=== PATIENT | male | born 1995 | race Caucasian/White ===

== ENCOUNTER 2016-07-15 05:41 | Observation (INO) | payer BC, OTHER ==
[2016-07-15] MEDS ORDERED: LIDOCAINE 1% 2 ML INJ ONE (06:00)
[2016-07-15] MEDS ORDERED: CLINDAMYCIN 600 MG/DEXTROSE 50 ML IV ONE (06:30)
[2016-07-15] MEDS ORDERED: fentaNYL 100 MCG/2 ML INJ ONE ×4 (06:34→12:08)
[2016-07-15] MEDS ORDERED: MIDAZOLAM 2 MG/2 ML VIAL ONE (06:34)
[2016-07-15] MEDS ORDERED: PROPOFOL 200 MG/20 ML VIAL ONE (06:35)
[2016-07-15 06:49] LABS: % IMMATURE GRANULYOCYTES 0.3 % (0.0-1.1); ABSOLUTE IMMATURE GRANULOCYTES 0.02 10^3/uL (0.00-0.10); ADD DIFF? NO; ADD MORPH? NO; ADD SCAN? NO; ATYPICAL LYMPHOCYTE FLAG 30 (0-99); FRAGMENT RBC FLAG 0 (0-99); HEMOGLOBIN 17.4 g/dL (13.7-17.5); LEFT SHIFT FLG 0 (0-99); LIPEMIA HEMOLYSIS FLAG 90 (0-99); MEAN CELL HEMOGLOBIN 28.8 pg (27.9-34.1); MEAN CELL HEMOGLOBIN CONCENTR. 35.5 g/dL (32.4-36.7); MEAN CELL VOLUME 81.1 fL (81.5-99.8); MEAN PLATELET VOLUME 9.8 fL (8.7-11.7); PLATELET CLUMPS FLAG 10 (0-99); PLATELET COUNT 247 10^3/uL (150-400); RED BLOOD CELL COUNT 6.04 10^6/uL (4.40-6.38); RED CELL DISTRIBUTION WIDTH 13.1 % (11.5-15.2)
[2016-07-15] MEDS ORDERED: BUPIVACAINE/EPI 0.5% 30 ML SDV ONE (07:01)
[2016-07-15] MEDS ORDERED: MINERAL OIL 10 ML VIAL ONE (07:02)
[2016-07-15] MEDS ORDERED: POLYMYXIN B SULFATE 500,000 UNIT/10 ML SYR IRR ONE (07:03)
[2016-07-15] MEDS ORDERED: BACITRACIN 50,000 UNITS/10 ML SYR IRR ONE (07:03)
[2016-07-15] MEDS ORDERED: LIDO/EPI 2% **for epidural** 20 ML SDV ONE (07:04)
[2016-07-15 07:05] LABS: ANION GAP 15 mEq/L (8-16); CALCIUM 10.1 mg/dL (8.5-10.4); CARBON DIOXIDE 23 mEq/l (22-31); CHLORIDE 106 mEq/L (97-110); CREATININE 0.9 mg/dL (0.7-1.3); GLOMERULAR FILTRATION RATE > 60; GLUCOSE 94 mg/dL (70-100); POTASSIUM 4.2 mEq/L (3.5-5.2); SODIUM 144 mEq/L (134-144)
--- NOTE | 2016-07-15 07:27 | POSTOPPROG ---
Post Op Note Date of Operation: 07/15/16 Surgeon: Tramaine Tellez Assistant Kitchen Manager: Silvestre Tellez Anesthesiologist: Allen Farrell Anesthesia: GET(General Endotracheal) (Nasal intubation) Pre-op Diagnosis: Maxillary hypoplasia, Class III skeletal/dental deformity Post-op Diagnosis: Same Indication: Malocclusion Procedure: LeFort 1 osteotomy advacement, equilibration of #20, 21, 28, 29 Findings: NSF Inf/Abcess present in the surg proc area at time of surgery?: No EBL: 50-100 (50cc) Total fluids administered: 2400cc Complications: The occlusal splint did not fit the dentition and therefore could not be used Specimen(s): none
[2016-07-15] MEDS ORDERED: ONDANSETRON 4 MG/2 ML VIAL IVP PRN (07:30)
[2016-07-15] MEDS ORDERED: NS W/ 20 KCl/L 1,000 ML IV SCH (07:30)
[2016-07-15] MEDS ORDERED: SODIUM CL NASAL 45 ML BTL EACHNARE PRN (07:30)
[2016-07-15] MEDS ORDERED: OXYMETAZOLINE 30 ML NASAL SPRAY EACHNARE PRN (07:30)
[2016-07-15] MEDS ORDERED: HYDROCOD/APAP 7.5/325 IN 15ML UDCUP PO PRN (07:30)
[2016-07-15] MEDS ORDERED: OXYMETAZOLINE 30 ML NASAL SPRAY EACHNARE ONE (07:45)
[2016-07-15] MEDS ORDERED: FLUTICASONE NASAL 120 SPRAYS/16 GM MDI EACHNARE SCH (09:00)
[2016-07-15] MEDS ORDERED: PSEUDOEPHEDRINE LIQ 30 MG/10 ML UDSYR PO SCH (09:00)
[2016-07-15] MEDS ORDERED: HYDROmorphONE/DILAUDID 1 MG/ML SYR ONE (12:08)
[2016-07-15] MEDS ORDERED: ONDANSETRON 4 MG/2 ML VIAL ONE (12:09)
--- NOTE | 2016-07-15 12:49 | GOP ---
[f rep st] OPERATIVE REPORT DATE OF OPERATION: 07/15/2016 SURGEON: Tramaine Tellez DDS INVESTMENT DIRECTOR: Silvestre Tellez DDS ANESTHESIA: General nasotracheal anesthesia. PREOPERATIVE DIAGNOSIS: 1. Maxillary hypoplasia. 2. Skeletal and dental class 3 profile. POSTOPERATIVE DIAGNOSIS: 1. Maxillary hypoplasia. 2. Skeletal and dental class 3 profile. PROCEDURE PERFORMED: LeFort I osteotomy advancement with rigid fixation. FINDINGS: No significant findings ESTIMATED BLOOD LOSS: 50 cc. INDICATIONS: The patient is a previously healthy 20-year-old male, who was diagnosed with maxillary hypoplasia and a class 3 skeletal dental deformity requiring orthognathic surgery to correct. He was seen on Wednesday, where risks, benefits, consequences, complications and alternatives of the procedure were discussed in detail, signed, and verbal consent was obtained. Postoperative written and verbal instructions were given. Prescriptions were also given to the patient. He presented to the hospital today n.p.o. and with an escort. DESCRIPTION OF PROCEDURE: The patient was transported into the operating room and onto the OR table. Following successful nasotracheal intubation, the patient had scleral rao placed and he was prepped and draped in a normal sterile fashion. A K-wire was placed in the patient's nasal dorsum. The vertical dimension was measured at 72.0 mm at the beginning of the case. 10 cc of 2% lidocaine with 1:100,000 epinephrine and 0.5% Marcaine with 1:200, 000 epinephrine was infiltrated into the patient's maxillary vestibule. Next, a Bovie electrocautery was used to make a circum-vestibular incision and the subperiosteal dissection was performed to expose the maxilla. The nasal mucosa was dissected off the nasal floor and lateral nasal wall. The anterior portion of the septum was also dissected off the bony nasal floor. A periosteal elevator was placed along the lateral aspect of the nasal wall to protect the mucosa and the LeFort I osteotomy was performed on the right side with a reciprocating saw. The periosteal elevator was then placed onto the opposite side to protect the nasal mucosa. LeFort I osteotomy was performed in the same fashion with the reciprocating saw under irrigation. All osteotomies and bone reduction were performed under normal saline impregnated with bacitracin and polymyxin. The osteotomy was then redefined with a straight spatula osteotome, defining the posterior maxillary sinus wall cuts. The guarded lateral nasal wall osteotome was used to separate the lateral nasal boone to a depth of 1.5 cm. The bilateral guarded nasal osteotome was then used to separate the nasal septum from the bony nasal floor. Lastly, the curved pterygoid osteotomes were used to separate the pterygoid plates bilaterally from the maxilla and the patient was down fractured. No obvious tears were noted in the nasal mucosa and the maxilla was freely mobilized with Andrew elevators. Bone on the lateral nasal wall and along the septum was reduced with a rongeur and watermelon bur under irrigation. The descending palatine arteries were preserved bilaterally. Next, the patient was placed into his final occlusal splint. It was noted that the splint had warped and the patient's right posterior maxillary teeth would not seat fully into the splint. After significant adjustment of the splint, we still could not get the splint to passively seat and, therefore, it was determined that the best course of action would be to place the patient into intermaxillary fixation without splint placement. This was completed, making sure that the maxillary and mandibular midlines were coincident. Bony interferences were then reduced and passive bilateral contact at the piriform and buttress was noted. The vertical measure was measured to assure that the patient was impacted slightly. Four Synthes 0.7 mm L plates with 5 mm monocortical self-drilling screws were used to stabilize the maxilla bilaterally. The patient was then released from intermaxillary fixation. It was noted that he had a slight deviation of his midline and that there were some tooth interferences. Therefore, tooth #20, #21 , #28, #29 were equilibrated with a round cabrera bur under copious irrigation. We were still not able to obtain a passive mandibular midline relative to the maxilla and, therefore, the patient was placed back into intermaxillary fixation. The bone plates screws were removed, passive bone contact was verified, plates were readjusted and secured in place. The patient was released from intermaxillary fixation and the maxillary and mandibular midlines were noted to be coincident and passive with his occlusion. Following LeFort I osteotomy with fixation the vertical was measured at 71.0 mm. I elected not to impact the patient the additional 2mm because he only showed 2mm of incisor at rest in the operating room following bone reduction and fixation. Prior to closing the incisions, the maxilla was thoroughly irrigated with normal saline impregnated with bacitracin. The autogenous bone that was preserved from the lateral nasal wall and septum reduction were then used to graft the small bony gaps in the LeFort I osteotomy site. A 3-0 Ethibond suture was used to perform an alar cinch. A 3-0 chromic gut suture was used to perform a 1 cm V-Y closure and the remaining vestibular incision was closed with a 3-0 chromic running locking suture. The throat screen was removed. The patient's stomach contents were evacuated with a nasogastric suction. The scleral rao were removed, as well as the K-wire. The patient was allowed to awaken from anesthesia and was transported to the PACU in stable condition. IV FLUIDS: 2600 cc. DISPOSITION: The patient will be admitted overnight for 23-hour observation. He will then be discharged to our office tomorrow for postoperative radiographs. /[id number]/MODL MTDD
[2016-07-15] MEDS ORDERED: DEXAMETHASONE 4 MG/ML VIAL IVP SCH (14:00)
[2016-07-15] MEDS: CLINDAMYCIN 300 MG in D5W 50 ML IV SCH ×2 (16:48→22:24)
[2016-07-15] MEDS: KETOROLAC 30 MG/1 ML SDV IVP SCH ×2 (16:50→18:58)
[2016-07-15] MEDS: CHLORHEXIDINE GLUCONATE 15 ML UDL PO SCH ×2 (17:08→19:53)
--- NOTE | 2016-07-15 19:37 | SOAPPROG ---
SOAP Progress Note Assessment/Plan: Assessment: Payam is POD #0 s/p LeFort 1 osteotomy advancement. He is doing very well Plan: 1. Increase PO intake 2. Transition PO pain meds 3. Ambulate with assist QID 4. Good oral hygiene 5. Consider d/c to the office tomorrow for x-rays 6. Please call [phone] with questions 7. Patient will need to void in the next few hours or will require and I/O cath 07/15/16 19:34 07/15/16 19:44 Subjective: Payam is POD #0 s/p LeFort 1 osteotomy advancement. Pain is 1/10, has not tried oral pain medication yet. He has not ambulated and has not voided. He has taken PO and has done well with minimal nausea. Objective: Vital Signs Temp Pulse Resp BP Pulse Ox 36.8 C 90 12 109/61 94 07/15/16 16:52 07/15/16 16:52 07/15/16 16:52 07/15/16 16:52 07/15/16 16:52 Laboratory Results 07/15/16 06:30 07/15/16 06:30 07/14/16 07/15/16 07/16/16 05:59 05:59 05:59 Intake Total 3100 Output Total 50 Balance 3050 Maxillary mucosa is well perfused, nasal septum midline, occlusion stable and repeatable, midlines coincident, elastics in place, incision c/i, bilateral V2 hypesthesia - Time Spent With Patient Time Spent With Patient: 20 min ICD10 Worksheet Patient Problems: Problems Problem Status Onset Maxillary hypoplasia Acute - ICD10 Problem Qualifiers (1) Maxillary hypoplasia
[2016-07-15] MEDS: PSEUDOEPHEDRINE LIQ 30 MG/10 ML UDSYR PO SCH (20:40)
[2016-07-15] MEDS: FLUTICASONE NASAL 120 SPRAYS/16 GM MDI EACHNARE SCH (20:41)
[2016-07-15] MEDS: D5W IV SCH (23:01)
[2016-07-15] MEDS: DEXAMETHASONE IV SCH (23:01)
[2016-07-16] MEDS: KETOROLAC 30 MG/1 ML SDV IVP SCH ×3 (00:20→11:24)
[2016-07-16] MEDS: DEXAMETHASONE IV SCH (05:18)
[2016-07-16] MEDS: D5W IV SCH (05:18)
[2016-07-16] MEDS: CLINDAMYCIN 300 MG in D5W 50 ML IV SCH (05:45)
--- NOTE | 2016-07-16 06:35 | SOAPPROG ---
SOAP Progress Note Assessment/Plan: Assessment: Payam is POD #1 s/p LeFort 1 osteotomy advancement. He is doing very well and feels as though he is ready to go home today Plan: 1. Increase PO intake 2. PO pain meds 3. Ambulate with assist QID 4. Good oral hygiene 5. D/C to the office today at noon for x-rays following the patient's next ABX and steroid dose 6. Please call [phone] with questions 07/15/16 19:34 07/15/16 19:44 07/16/16 06:35 07/16/16 06:41 Subjective: Lukinjal is POD #1 s/p LeFort 1 osteotomy advancement. Pain 1/10, taking oral pain meds. Taking good PO. Ambulating and voiding. Objective: Vital Signs Temp Pulse Resp BP Pulse Ox 36.6 C 73 15 110/56 L 94 07/16/16 03:55 07/16/16 03:55 07/16/16 03:55 07/16/16 03:55 07/16/16 03:55 Laboratory Results 07/15/16 06:30 07/15/16 06:30 07/15/16 07/16/16 07/17/16 05:59 05:59 05:59 Intake Total 3550 Output Total 50 Balance 3500 Exam unchanged since last night. Mucosa still well perfused. Lungs CTAB, Heart: NR, RR, SCDs in place. Ice to face, minimal crusting in nose - Time Spent With Patient Time Spent With Patient: 15 minutes - Pending Discharge Pending Discharge Within 24 Hours: Yes Pending Discharge Date: 07/17/16 Pending Discharge Time: 11:00 ICD10 Worksheet Patient Problems: Problems Problem Status Onset Maxillary hypoplasia Acute - ICD10 Problem Qualifiers (1) Maxillary hypoplasia
[2016-07-16] MEDS: PSEUDOEPHEDRINE LIQ 30 MG/10 ML UDSYR PO SCH (08:54)
[2016-07-16] MEDS: FLUTICASONE NASAL 120 SPRAYS/16 GM MDI EACHNARE SCH (08:55)
[2016-07-16] MEDS: CHLORHEXIDINE GLUCONATE 15 ML UDL PO SCH (08:56)
[2016-07-16] MEDS ORDERED: DEXAMETHASONE IV SCH (12:00)
[2016-07-16] MEDS ORDERED: CLINDAMYCIN 300 MG in D5W 50 ML IV SCH (12:00)
[2016-07-16] MEDS ORDERED: D5W IV SCH (12:00)
[2016-07-16 12:17] VITALS: BP 116/64; PULSE 76; RESP 16; TEMP 98.4; O2SAT 95
== END 2016-07-16 12:40 | disposition home or self-care (01) ==
LOC: F3E 05:41 → PREINTOOBSV 14:50
PROVIDERS: ADMIT Dentist Oral and Maxillofacial Surgery; ATTEND Dentist Oral and Maxillofacial Surgery
PROC: 0NSR04Z Reposition Maxilla with Internal Fixation Device, Open Approach (ICD-10-PCS; principal; 2016-07-15 07:15)
PROC: 0NSS04Z (ICD-10-PCS; principal; 2016-07-15 07:15)
DX: M26.02 Maxillary hypoplasia (principal); M95.2 Other acquired deformity of head; M26.4 Malocclusion, unspecified
CPT/HCPCS: 21206; G0378; C1713; J1100; J1170; J1885; J2250; J2405; J2704; J3010; J3490